=== PATIENT | female | born 1980 | race Caucasian/White ===

== ENCOUNTER 2017-06-05 23:05 | Outpatient (CLI) | payer MEDICAID | END 2017-06-05 23:06 | disposition critical access hospital (66) | LOC: EMS 23:05 | PROVIDERS: ATTEND Surgery | DX: M79.606 Pain in leg, unspecified (principal) | CPT/HCPCS: A0425; A0429 ==

== ENCOUNTER 2017-06-05 23:25 | Emergency (ER) | payer MEDICAID ==
[2017-06-05] MEDS ORDERED: AMOXICILLIN 250 MG CAPSULE PO STA (23:38)
[2017-06-05 23:41] VITALS: BP 116/78
--- NOTE | 2017-06-06 00:15 | XRAY Report ---
EXAM: LEFT KNEE RADIOGRAPHY EXAM DATE: 06/06/2017 12:07 AM. CLINICAL HISTORY: Knee pain after falling. COMPARISON: None. TECHNIQUE: 2 views. FINDINGS: Bones: Normal. No fractures or bone lesions. Joints: Normal. No effusion. No subluxations. Soft Tissues: Normal. No soft tissue swelling. IMPRESSION: Normal knee radiography. [facility] Referring Provider Line: [phone] SITE ID: [id number]
--- NOTE | 2017-06-06 00:15 | XRAY Preliminary Report ---
Exam: XR KNEE 2 VIEW LT IMPRESSION: Normal knee radiography. [facility] SITE ID: [id number]
--- NOTE | 2017-06-06 00:21 | ED Physician Documentation ---
History of Present Illness - Stated complaint Stated Complaint: EAR/LEG PAIN - Chief complaint Chief Complaint: Ext Problem - History obtained from History obtained from: Patient, EMS - History of Present Illness Timing: Today - Additonal information Additional information: Patient is a 36 year old female with unknown past medical history who was brought in by ems for ear pain, and leg pain. Patient states that she was diagnosed with a bad ear infection that required iv antibiotics and that she fell about a week ago and had bad knee pain. patient appears disheveled wearing about 4 pairs of pants and under the influence of methamphetamine. Review of Systems Unable to obtain: Other (unreliable) PD PAST MEDICAL HISTORY - Past Medical History Past Medical History: Yes - Past Surgical History Past Surgical History: No - Present Medications Home Medications: Ambulatory Orders Medication Instructions Recorded Confirmed Azithromycin [Zithromax] 250 mg PO DAILY #4 tablet 05/28/17 Amoxicillin 1,000 mg PO BID #40 capsule 06/06/17 - Allergies Allergies/Adverse Reactions: Allergies Allergy/AdvReac Type Severity Reaction Status Date / Time buprenorphine HCl * AdvReac Unknown Verified 01/03/14 11:54 [From Suboxone] naloxone HCl * AdvReac Unknown Verified 01/03/14 11:54 [From Suboxone] - Social History Does the pt smoke?: No Smoking Status: Never smoker Does the pt drink ETOH?: Yes Does the pt have substance abuse?: No - Immunizations Immunizations are current?: No - POLST Patient has POLST: No PD ED PE NORMAL - Vitals Vital signs reviewed: Yes - HEENT HEENT: Atraumatic - Cardiac Cardiac: RRR - Respiratory Respiratory: No respiratory distress - Abdomen Abdomen: Non distended - Derm Derm: Normal color PD ED PE EXPANDED - General General: Alert, Disheveled, poorly kept - HEENT HEENT: Atraumatic, R TM red, R TM retracted - Extremities Extremities: Left knee (mild tenderness to palpation) - Psych Psych: Intoxicated / AOB (likely under the influence of methamphetamine), Poor eye contact, Delusions. No: Combative Results - Vitals Vitals: Vital Signs - 24 hr 06/05/17 23:30 Temperature 36.5 C Heart Rate 91 Respiratory 16 Rate Blood Pressure 116/78 O2 Saturation 98 Oxygen O2 Source Room air - Rads (name of study) knee x-ray Radiology: Final report received (normal) PD MEDICAL DECISION MAKING - ED course Complexity details: reviewed old records, reviewed results, re-evaluated patient , considered differential, d/w patient ED course: Patient was seen and examined at bedside. patient was very disheveled, wet and came with two back packs and was wearing 4 pairs of pants. Patient was treated with amoxicllin and imaging was ordered. there was no acute fracture or dislocation. Patient required no further inpatient work up and was stable for discharge with outpatient follow up. Departure - Departure Disposition: 01 Home, Self Care Clinical Impression: Otitis media Condition: Good Instructions: ED Otitis Media Serous Adult Follow-Up: primary,care provider [Other] Prescriptions: Amoxicillin 1,000 mg PO BID #40 capsule Comments: You should take your entire course of antibiotics. Your knee x-ray was normal. You can take motrin or tylenol as needed for pain. You should follow up with the clinic for further care.
== END 2017-06-06 00:25 | disposition home or self-care (01) ==
LOC: ED 23:25
DX: H66.91 Otitis media, unspecified, right ear (principal); M25.569 Pain in unspecified knee
CPT/HCPCS: 73560; 99283; A9270